=== PATIENT | female | born 1990 | race Asian ===

== ENCOUNTER 2018-05-26 18:24 | Inpatient (IN) ==
[2018-05-26] MEDS ORDERED: OXYTOCIN 30 UNITS/500 ML BAG IV PRN ×2 (18:41→21:33)
[2018-05-26] MEDS ORDERED: LACTATED RINGER'S 1,000 ML IV PRN ×2 (18:41→20:47)
--- NOTE | 2018-05-26 18:44 | History & Physical Report ---
Date of Service May 26, 2018 38 weeks gestation primipara labor group B strep negative uncomplicated contractions every 3 minutes now cervix is currently 6 cm admit History of Present Illness Primary Care Provider: NO PCP Physical Exam Vital Signs (Past 24 Hours): Last Vital Signs Pulse 73 05/26/18 18:30 BP 127/70 05/26/18 18:30 Constitutional: WD/WN, vitals as above Respiratory: normal respiratory effort, lungs clear to auscultation Cardiovascular: RRR, no murmur, no edema Genitourinary: 6cm
[2018-05-26] MEDS ORDERED: LACTATED RINGER'S 1,000 ML IV SCH (18:45)
[2018-05-26] MEDS ORDERED: BUPIVACAINE 0.25% 30 ML VIAL ONE (19:03)
[2018-05-26] MEDS ORDERED: ePHEDrine sulfate 50 MG/ML AMP ONE (19:03)
[2018-05-26] MEDS ORDERED: fentaNYL 2MCG/ML ROPIV 1.25MG/ML 100 ML BAG EPI ONE (19:04)
[2018-05-26] MEDS ORDERED: fentaNYL citrate 100 MCG/2 ML VIAL ONE (19:04)
[2018-05-26 19:06] LABS: Hematocrit (blood only) 40.4 % (37-47); Mean Corpuscular Volume 94.6 fL (80-100); Mean Platelet Volume 12.6 fL (7.4-10.4); Platelet Count 141 K/uL (130-400); RDW Standard Deviation 48.7 fL (36.4-46.3); Red Blood Count 4.27 M/uL (4.2-5.4); White Blood Count 12.16 K/uL (4.8-10.8)
[2018-05-26 19:44] LABS: Mean Corpuscular Hgb Conc 34.7 g/dL (32-36)
--- NOTE | 2018-05-26 20:34 | Obstetrical Progress Note ---
Date of Service May 26, 2018 8cm AROM clear fluid. Cat 1 Physical Exam Vital Signs (Past 24 Hours): Last Vital Signs Temp 36.7 C 05/26/18 19:32 Pulse 91 H 05/26/18 20:31 Resp 18 05/26/18 19:32 BP 122/72 05/26/18 20:31 Pulse Ox 99 05/26/18 20:30
--- NOTE | 2018-05-26 20:42 | Anesthesiology Consultation ---
Date of Service May 26, 2018 Assessment & Plan (1) Encounter for pre-operative examination: Chart Review Chart Review: Acceptable Risk for Surgery and Patient NOT seen in Pre Admission Testing Consults Requested none ASA ASA2 Proposed Anesthesia Anesthesia Type: Labor Epidural Risk / Benefits Reviewed With: PT / POA / Parent / Guardian, Accepts Plan and Informed Consent Obtained History Height/Weight Height: 5 ft 5.75 in Weight: 65.771 kg Allergies Allergy/AdvReac Type Severity Reaction Status Date / Time No Known Allergies Allergy Verified 05/26/18 19:15 Medications Home Medications Medication Instructions Recorded Confirmed Last Taken omega 2-juk-vor-fish oil [Fish Oil] 1 cap PO DAILY 05/26/18 05/26/18 05/24/18 20:00 vit-iron fum-folic ac 1 tab PO DAILY 05/26/18 05/26/18 05/24/18 20:00 [ Vitamin] Active Medications Generic Name Dose Route Start Last Admin Trade Name Freq PRN Reason Stop Dose Admin Lactated Ringer's 1,000 mls @ 999 mls/hr 05/26/18 18:41 05/26/18 19:55 Lr IV 06/25/18 18:40 Infused .Q1H1M PRN Infusion (Pre-Anesthesia) Lactated Ringer's 1,000 mls @ 125 mls/hr 05/26/18 18:45 05/26/18 19:55 Lr IV 05/28/18 18:44 125 mls/hr .Q8H RADHA Administration Social History Smoking Status: Never smoker Hx Alcohol Use: No Hx Substance Use: No Physical Exam Vital Signs Last Vital Signs Temp 36.7 C 05/26/18 19:32 Pulse 85 05/26/18 20:37 Resp 18 05/26/18 19:32 BP 130/79 05/26/18 20:37 Pulse Ox 100 05/26/18 20:35 Testing Laboratory Results 05/26/18 18:55
[2018-05-26] MEDS ORDERED: NALOXONE HCL 0.4 MG/1 ML VIAL/CARP IV PRN (20:47)
[2018-05-26] MEDS ORDERED: NALOXONE HCL 1 MG in SODIUM CHLORIDE 0.9% 1000ML 1,000 ML IV PRN (20:47)
[2018-05-26] MEDS ORDERED: fentaNYL 2MCG/ML ROPIV 1.25MG/ML 100 ML BAG EPI PRN (20:47)
[2018-05-26] MEDS ORDERED: ONDANSETRON INJ 2 MG/ML 2 ML VIAL IV PRN (20:47)
[2018-05-26] MEDS ORDERED: DiphenhydrAMINE HCL 50 MG/ML VIAL IV PRN (20:47)
[2018-05-26] MEDS ORDERED: ePHEDrine sulfate 50 MG/ML AMP IV PRN (20:47)
[2018-05-26] MEDS ORDERED: NALBUPHINE HCL INJ 10 MG/ML AMP IV PRN (20:47)
[2018-05-26] MEDS ORDERED: BENZOCAINE 20% AER SPR 82.5 GM CAN EXT PRN (21:33)
[2018-05-26] MEDS ORDERED: IBUPROFEN 600 MG TAB PO PRN (21:33)
[2018-05-26] MEDS ORDERED: HYDROCORTISONE ACETATE 25 MG SUPP PR PRN (21:33)
[2018-05-26] MEDS ORDERED: OXYCODONE/ACETAMINOPHEN 5mg/325mg TAB PO PRN (21:33)
[2018-05-26] MEDS ORDERED: DIPHTHERIA/TETANUS/PERTUSSIS 0.5 ML SYR/VIAL IM ONE (21:33)
[2018-05-26] MEDS ORDERED: ACETAMINOPHEN 325 MG TAB PO PRN (21:33)
[2018-05-26] MEDS ORDERED: SUPERCREAM 0.870% 15 GM JAR EXT PRN (21:33)
--- NOTE | 2018-05-26 21:38 | Procedure Note ---
Vaginal Delivery Summary Date of Service May 26, 2018 Spontaneous vaginal delivery of live vigorous female infant patient presented to labor and delivery in active labor received an epidural group B strep negative delivered in occiput anterior mouth and then nares were suctioned fluid was clear no nuchal cord no excessive force used live vigorous female infant cord clamped and cut cord gases obtained cord blood obtained placenta removed with gentle traction IV Pitocin started second-degree tear repaired with 3-0 Vicryl sponge and instrument counts correct estimated blood loss 150 mL
[2018-05-26 21:51] LABS: Base Excess Cord Venous Blood -1.4 mEq/L (-7.7-1.9); Cord Venous Blood HCO3 26 mmol/L (18.4-26.8); Cord Venous Blood PCO2 56 mmHg (30.4-57.2); Cord Venous Blood PO2 30 mmHg (14.1-43.3); Cord Venous Blood pH 7.29 (7.20-7.44)
--- NOTE | 2018-05-27 06:21 | Anesthesia Procedure Note ---
Date of Service May 27, 2018 Anesthesia Post Epidural Note Vital Signs Vital Signs: Temp Pulse Resp BP Pulse Ox 36.6 C 67 18 117/66 100 05/27/18 03:40 05/27/18 03:40 05/27/18 03:40 05/27/18 03:40 05/26/18 21:36 Pain Intensity Bilateral Abdomen: Pain Intensity: 0 Notes Mental Status: alert / awake / arousable and participated in evaluation Nausea / Vomiting: adequately controlled Pain: adequately controlled Airway Patency, RR, SpO2: stable & adequate BP & HR: stable & adequate Hydration State: stable & adequate Neuraxial Anesthesia: sensory block resolved Epidural: Removed without complications and With tip intact
[2018-05-27 08:09] LABS: Hematocrit (blood only) 33.6 % (37-47); Hemoglobin 11.4 g/dL (12.0-16.0); Mean Corpuscular Hgb Conc 33.9 g/dL (32-36); Mean Corpuscular Volume 94.9 fL (80-100); Mean Platelet Volume 12.2 fL (7.4-10.4); Platelet Count 114 K/uL (130-400); Platelet Estimate Decreased (Normal); RDW Coefficient of Variation 14.2 % (11.5-14.5); RDW Standard Deviation 49.1 fL (36.4-46.3); Red Blood Count 3.54 M/uL (4.2-5.4); White Blood Count 13.39 K/uL (4.8-10.8)
--- NOTE | 2018-05-27 08:40 | Obstetrical Progress Note ---
Date of Service May 27, 2018 day #1 from vaginal delivery patient is well minimal bleeding or pain no extremity pain tolerating oral diet Assessment & Plan (1) Spontaneous vaginal delivery: day #1 routine care will stay till tomorrow Physical Exam Vital Signs (Past 24 Hours) Last Vital Signs Temp 36.6 C 05/27/18 03:40 Pulse 67 05/27/18 03:40 Resp 18 05/27/18 03:40 BP 117/66 05/27/18 03:40 Pulse Ox 100 05/26/18 21:36 Abdomen soft nontender uterus firm extremity negative
[2018-05-27] MEDS: DOCUSATE SODIUM 100 MG CAP PO SCH ×2 (08:42→20:39)
[2018-05-27] MEDS: PRENATAL VITAMIN 1 TAB PO SCH (08:42)
[2018-05-27] MEDS ORDERED: MEASLES, MUMPS & RUBELLA VIRUS VIAL SQ ONE (12:18)
[2018-05-27] MEDS ORDERED: BISACODYL 5 MG TABEC PO SCH (20:00)
[2018-05-28] MEDS ORDERED: BISACODYL 10 MG SUPP PR PRN (06:00)
[2018-05-28 07:14] LABS: Hematocrit (blood only) 37.5 % (37-47); Hemoglobin 12.5 g/dL (12.0-16.0)
--- NOTE | 2018-05-28 07:41 | Obstetrical Progress Note ---
Date of Service May 28, 2018 day #2 the patient is well ambulating well no extremity pain minimal bleeding she wishes to go home Assessment & Plan (1) Spontaneous vaginal delivery: Discharge home Physical Exam Vital Signs (Past 24 Hours) Last Vital Signs Temp 36.8 C 05/27/18 23:10 Pulse 81 05/27/18 23:10 Resp 18 05/27/18 23:10 BP 103/64 05/27/18 23:10 Pulse Ox 99 05/27/18 11:00 Uterus is firm nontender extremity exam negative
[2018-05-28] MEDS: PRENATAL VITAMIN 1 TAB PO SCH (09:01)
[2018-05-28] MEDS: DOCUSATE SODIUM 100 MG CAP PO SCH (09:01)
[2018-05-28 09:42] VITALS: O2SAT 97
[2018-05-28] MEDS ORDERED: MEASLES, MUMPS & RUBELLA VIRUS VIAL SQ ONE (10:20)
[2018-05-28 16:03] VITALS: BP 99/62; PULSE 79; TEMP 97.7
== END 2018-05-28 18:30 | disposition home or self-care (01) | DRG 807 ==
LOC: OPB 18:24 → 4S1 18:25 → 4S2 05-27